=== PATIENT | female | born 1955 | race American Indian/Alaskan Native ===

== ENCOUNTER 2023-11-20 07:12 | Inpatient (IN) | payer OTHER ==
[~2023-11-20] VITALS: Ht 157.5 cm; Wt 51.0 kg
[~2023-11-20 07:12] MED LIST: CIPR500 PO; HYDR1TAB94 PO; METOPROLOL TART25 MG PO; Norco 5-325 Ta1 EACH PO; PRED20 PO; TRELEGY ELLIPT1 EACH INH
[2023-11-20] MEDS ORDERED: DILT60 PO (07:21)
[2023-11-20] MEDS ORDERED: ALBUTEROL2.5 MG/0.5 INH (07:21)
[2023-11-20] MEDS ORDERED: Ipratropium/Albuterol SulF 2.5-0.5MG/3 ML Amp INH ONE (08:00)
[2023-11-20] MEDS ORDERED: Albuterol 2.5 MG/3 ML VIAL INH SCH ×2 (08:00→10:00)
[2023-11-20] MEDS ORDERED: dilTIAZem HCL 30 MG TAB PO ONE (08:05)
[2023-11-20 08:18] LABS: BASOPHILS ABSOLUTE AUTO 0.04 K/mm3 (0.00-0.23); BASOPHILS PERCENT AUTO 1 % (0-2); EOSINOPHILS ABSOLUTE AUTO 0.26 K/mm3 (0.00-0.68); EOSINOPHILS PERCENT AUTO 4 % (0-6); Hematocrit 45.6 % (33.0-51.0); Hemoglobin 15.3 g/dL (11.5-16.0); IMMATURE GRAN ABSOLUTE AUTO 0.04 K/mm3 (0.00-0.10); IMMATURE GRAN PERCENT AUTO 1 % (0-1); LYMPHOCYTES ABSOLUTE AUTO 1.15 K/mm3 (0.84-5.20); LYMPHOCYTES PERCENT AUTO 16 % (21-46); MONOCYTES ABSOLUTE AUTO 0.31 K/mm3 (0.16-1.47); MONOCYTES PERCENT AUTO 4 % (4-13); Mean Corpuscular HGB 30.8 pg (26.0-34.0); Mean Corpuscular HGB Conc 33.6 g/dL (31.5-36.5); Mean Corpuscular Volume 92 fL (80-100); Mean Platelet Volume 10.5 fL (9.1-12.4); NEUTROPHILS ABSOLUTE AUTO 5.42 K/mm3 (1.96-9.15); NEUTROPHILS PERCENT AUTO 75 % (41-73); Platelet Count 285 K/mm3 (150-400); RDW Coefficient Variation 13.2 % (11.7-14.2); RDW Standard Deviation 44.1 fL (35.1-46.3); Red Blood Cell Count 4.97 M/mm3 (3.80-5.20); White Blood Cell Count 7.22 K/mm3 (4.00-11.30)
[2023-11-20] MEDS ORDERED: Midazolam HCl 1MG / ML 2ML Vial IV ONE ×2 (08:20→09:00)
[2023-11-20 08:46] LABS: Albumin, Blood 3.9 g/dL (3.4-5.0); Bilirubin, Total 0.6 mg/dL (0.1-1.0); Bun/Creatinine Ratio 19.5 (12.0-20.0); Calcium, Blood 9.5 mg/dL (8.5-10.1); Creatinine, Blood 0.57 mg/dL (0.40-1.00); Globulin, Blood 3.8 g/dL (2.2-4.0); Potassium, Blood 4.2 mmol/L (3.5-5.5); Total Protein, Blood 7.7 g/dL (6.4-8.2)
[2023-11-20] MEDS ORDERED: Azithromycin 250 MG Tab PO ONE (10:10)
[2023-11-20] MEDS ORDERED: Acetaminophen 325 MG TABLET PO PRN (10:20)
[2023-11-20] MEDS ORDERED: Ipratropium/Albuterol SulF 2.5-0.5MG/3 ML Amp INH SCH (10:20)
[2023-11-20] MEDS ORDERED: CefTRIAXone Sodium 1,000 MG in NS 100 ML IV SCH (11:00)
[2023-11-20 11:34] LABS: Influenza A, PCR NEGATIVE (NEGATIVE); Influenza B, PCR NEGATIVE (NEGATIVE); Resp Syncytial Virus, PCR NEGATIVE (NEGATIVE); SARS-Cov-2 (COVID-19) PCR, MMC NEGATIVE (NEGATIVE)
[2023-11-20] MEDS ORDERED: MethylPREDNISolone Sod Succ 125 MG Vial IV SCH (12:00)
[2023-11-20] MEDS ORDERED: ALBU90OI INH (12:42)
[2023-11-20] MEDS ORDERED: ASCO500 PO (12:43)
[2023-11-20] MEDS ORDERED: ASPI81CH PO (12:43)
[2023-11-20] MEDS ORDERED: Vitamin B Comple1 EA PO (12:44)
[2023-11-20] MEDS ORDERED: THERA-D2000 UNIT PO (12:44)
[2023-11-20] MEDS ORDERED: Albuterol 2.5 MG/3 ML VIAL INH PRN (15:15)
[2023-11-20 15:42] VITALS: BP 113/65
[2023-11-20] MEDS ORDERED: FORMOTEROL INH SCH (15:55)
[2023-11-20] MEDS ORDERED: BUDESONIDE 0.5 MG INH SCH (15:55)
[2023-11-20] MEDS ORDERED: GLYCOPYRROLATE INH SCH (15:55)
--- NOTE | 2023-11-20 18:25 | NUR ---
SHIFT SUMMARY; ASSUMED CARE FROM ED FOR ADMIT. MOVES SELF FROM GURNEY TO BED. EXTREMLY SOB AND RAPID BREATHING WITH THE EXERTION. 4L 02 VIA NC, SATS 92%. PT STATES NORMAL SATS ARE 88-89%. GRADUALLY SLOWS BREATHING DOWN AND LOOKS LESS DISTRESSED. APPEARS ANXIOUS, PROVIDER DISCUSSED ATIVAN AND WILL ORDER. DAUGHTER AT BEDSIDE, A/A/OX4, WILL CONTINUE TO TREAT AND MONITOR UNTIL CHANGE OF SHIFT.
[2023-11-20 19:28] VITALS: BP 117/72
--- NOTE | 2023-11-20 20:14 | NUR ---
ASSUMPTION OF CARE AFTER RECEIVING REPORT FROM CARLOS RN, THIS RN ASSUMED CARE AT APPROX 1915. PATIENT ALERT AND ORIENTED X4. RECEPTIVE TO EDUCATION. PERRLA. MOVES ALL EXTREMITIES EQUALLY. TELEMETRY SHOWING SINUS TACH 110s-120s. REPORTS HX OF SINUS TACH IN WHICH SHE TAKES PO DILTIAZEM. EVENING DOSE ADMINISTERED PER EMAR. BP STABLE. CURRENTLY ON 3-4L VIA NC, SATs >90%. MILD EXPIRATORY WHEEZE NOTED - RT AT BEDSIDE TO ADMINISTER SCHEDULED BREATHING TREATMENT. RECEIVED IN REPORT THAT PATIENT DOES EXPERIENCE ANXIETY WITH BIPAP USE - MD CONTACTED, RECEIVED ORDER FOR PRN IV ATIVAN 0.25MG TID IF BIPAP NEEDED. RT SUGGESTING INCENTIVE SPIROMETER AT BEDSIDE FOR USE - RECEIVED ORDER FROM MD. PATIENT IS A SBA TO BSC DUE TO SHORTNESS OF BREATH. REPOSITIONS HERSELF INDEPENDENTLY IN BED. CALL LIGHT IN REACH.
[2023-11-20] MEDS ORDERED: LORazepam 2 MG/ML 1ML Injection IV PRN (20:15)
[2023-11-20] MEDS ORDERED: dilTIAZem HCL 60 MG TAB PO SCH (21:00)
[2023-11-20] MEDS ORDERED: Ascorbic Acid 500 MG Tab PO SCH (21:00)
[2023-11-20 23:23] VITALS: BP 94/65
[2023-11-21 03:40] VITALS: BP 115/65
[2023-11-21 04:18] LABS: BASOPHILS PERCENT AUTO 0 % (0-2); EOSINOPHILS PERCENT AUTO 0 % (0-6); Hematocrit 43.2 % (33.0-51.0); Hemoglobin 14.4 g/dL (11.5-16.0); IMMATURE GRAN ABSOLUTE AUTO 0.03 K/mm3 (0.00-0.10); IMMATURE GRAN PERCENT AUTO 0 % (0-1); LYMPHOCYTES ABSOLUTE AUTO 0.62 K/mm3 (0.84-5.20); LYMPHOCYTES PERCENT AUTO 8 % (21-46); MONOCYTES ABSOLUTE AUTO 0.07 K/mm3 (0.16-1.47); MONOCYTES PERCENT AUTO 1 % (4-13); Mean Corpuscular HGB 30.6 pg (26.0-34.0); Mean Corpuscular HGB Conc 33.3 g/dL (31.5-36.5); Mean Corpuscular Volume 92 fL (80-100); Mean Platelet Volume 10.9 fL (9.1-12.4); NEUTROPHILS PERCENT AUTO 91 % (41-73); Platelet Count 290 K/mm3 (150-400); RDW Coefficient Variation 13.1 % (11.7-14.2); RDW Standard Deviation 43.8 fL (35.1-46.3); Red Blood Cell Count 4.71 M/mm3 (3.80-5.20); White Blood Cell Count 7.82 K/mm3 (4.00-11.30)
[2023-11-21 05:04] LABS: Albumin, Blood 3.7 g/dL (3.4-5.0); Albumin/Globulin Ratio 1.1 (0.8-1.8); Bilirubin, Total 0.3 mg/dL (0.1-1.0); Bun/Creatinine Ratio 27.6 (12.0-20.0); Creatinine, Blood 0.44 mg/dL (0.40-1.00); Globulin, Blood 3.4 g/dL (2.2-4.0); Potassium, Blood 3.9 mmol/L (3.5-5.5); Total Protein, Blood 7.1 g/dL (6.4-8.2)
--- NOTE | 2023-11-21 05:34 | NUR ---
SHIFT SUMMARY NO ACUTE EVENTS OVERNIGHT. PATIENT SLEPT OR RESTED QUIETLY T/O NIGHT, EASILY AROUSABLE WITH VERBAL STIMULI. REMAINS ALERT AND ORIENTED X4. COMMUNICATING NEEDS EFFECTIVELY. TELEMETRY SHOWING SINUS TACH 120s. BP SOFT AT TIMES, SBP 90s-100s. MAP >65. ON 3L VIA NC, SATs 88-92%. EXPIRATORY WHEEZE IMPROVING. DID NOT REQUIRE USE OF BIPAP T/O NIGHT. REPOSITIONING HERSELF INDEPENDENTLY. CALL LIGHT IN REACH. WILL CONTINUE TO MONITOR AND REPORT TO ONCOMING RN.
[2023-11-21 07:35] VITALS: BP 115/62
[2023-11-21] MEDS ORDERED: Cholecalciferol 1000 Unit Tablet (=25MCG) PO SCH (09:00)
[2023-11-21] MEDS ORDERED: Lactobacil 2-S.Thermo-Bifido 1 1 Cap PO SCH (09:00)
[2023-11-21] MEDS ORDERED: Vitamin B Complex 1 EA Softgel PO SCH (09:00)
[2023-11-21] MEDS ORDERED: Enoxaparin 40 MG/0.4 ML SYR SC SCH (09:00)
[2023-11-21] MEDS ORDERED: Azithromycin 250 MG Tab PO SCH (09:00)
[2023-11-21] MEDS ORDERED: Aspirin 81 MG Chew PO SCH ×2 (09:00→21:00)
[2023-11-21 11:38] LABS: Free Thyroxine 1.2 ng/dL (0.70-1.60); Thyroid Stimulating Hormone 0.223 uIU/mL (0.360-4.800)
[2023-11-21 12:03] VITALS: BP 105/70
[2023-11-21] MEDS ORDERED: GuaiFENesin 600 MG TabCR PO SCH (16:00)
[2023-11-21 16:06] VITALS: BP 120/64
--- NOTE | 2023-11-21 18:11 | NUR ---
PT SUMMARY; NO ACUTE CHANGE FOR THE SHIFT. PT REMAINS ON 4L OF O2 VIA NASAL CANNULA UP TO 6L WHEN AMBULATING TO THE BATHROOM, PT DESATS TO 85-88% WITH EXERTION PT WITH NOTICEABLE SOB AND WHEEZING. HRR HAS BEEN ST 100-120'S, SBP 100-120'S, AFEBRILE. PT C/O NONPRODUCTIVE COUGH, MUCINEX ORDERED BID. PT TOLERATING PO AND FLUID INTAKE. DENIES CHEST PAIN/PRESSURE, NO NVD/DIZZINESS FOR THE SHIFT. PT CONTINUES ON IV ABO, STEROIDS AND BREATHING TX PER RT. NO OTHER ISSUES REPORTED. PT HAS BEEN CALLING APPROPRIATELY. ABLE TO MAKE NEEDS KNOWN WILL REPORT TO ONCOMING SHIFT
[2023-11-21 20:12] VITALS: BP 106/65
[2023-11-21] MEDS ORDERED: Benzonatate 100 MG Cap PO PRN (20:25)
--- NOTE | 2023-11-21 21:11 | NUR ---
ASSUMPTION OF CARE Pt sitting up in bed, oriented x4, RT at bedside for breathing tx. Pt reporting cough not getting better and requests additional medications, discussed with Dr Alicia, bobbi salomon ordered and administered. Pt on 5L oxygen per nasal canula, increased needs with activity. Monitor shows sinus tachycardia, rate 120's-130's, baseline for patient. Blood pressure stable. Pt denies GI/ issues.
[2023-11-21 23:23] VITALS: BP 130/64
[2023-11-22] VITALS (7 sets, daily range): BP systolic 109–143; BP diastolic 59–90
[2023-11-22 04:28] LABS: BASOPHILS ABSOLUTE AUTO 0.02 K/mm3 (0.00-0.23); BASOPHILS PERCENT AUTO 0 % (0-2); EOSINOPHILS PERCENT AUTO 0 % (0-6); Hematocrit 41.6 % (33.0-51.0); IMMATURE GRAN ABSOLUTE AUTO 0.09 K/mm3 (0.00-0.10); IMMATURE GRAN PERCENT AUTO 1 % (0-1); LYMPHOCYTES ABSOLUTE AUTO 0.58 K/mm3 (0.84-5.20); LYMPHOCYTES PERCENT AUTO 4 % (21-46); MONOCYTES ABSOLUTE AUTO 0.29 K/mm3 (0.16-1.47); MONOCYTES PERCENT AUTO 2 % (4-13); Mean Corpuscular HGB 31.3 pg (26.0-34.0); Mean Corpuscular HGB Conc 33.7 g/dL (31.5-36.5); Mean Corpuscular Volume 93 fL (80-100); Mean Platelet Volume 10.8 fL (9.1-12.4); NEUTROPHILS ABSOLUTE AUTO 15.82 K/mm3 (1.96-9.15); NEUTROPHILS PERCENT AUTO 94 % (41-73); Platelet Count 293 K/mm3 (150-400); RDW Coefficient Variation 13.3 % (11.7-14.2); RDW Standard Deviation 45.3 fL (35.1-46.3); Red Blood Cell Count 4.48 M/mm3 (3.80-5.20)
[2023-11-22 05:00] LABS: Bun/Creatinine Ratio 36.5 (12.0-20.0); Calcium, Blood 8.9 mg/dL (8.5-10.1); Creatinine, Blood 0.52 mg/dL (0.40-1.00); Potassium, Blood 4.2 mmol/L (3.5-5.5)
--- NOTE | 2023-11-22 05:37 | NUR ---
SHIFT SUMMARY NO ACUTE EVENTS THIS SHIFT, PT REMAINS ORIENTED, OXYGEN REQUIREMENTS DECREASED OVERNIGHT TO 3L WITH INCREASES TO 5L WITH ACTIVITY. MONITOR SHOWS SINUS TACH WITH RATES 110-120'S, BP STABLE. NO GI/ ISSUES.
[2023-11-22] MEDS ORDERED: MethylPREDNISolone Sod Succ 125 MG Vial IV ONE (12:15)
--- NOTE | 2023-11-22 12:19 | NUR ---
SOLU-MEDROL: THE PATIENT'S DOSING OF THE SOLU-MEDROL HAS BEEN CHANGED TO Q12. SPOKE WITH DR. HERNANDES TO DETERMINE IF PATIENT SHOULD RECEIVE THE 12:00 DOSE (ORDERED DC'D AT 1200). PER DR. HERNANDES, PATIENT SHOULD RECEIVE THIS DOSE. ONE TIME ORDER ENTERED.
[2023-11-22] MEDS ORDERED: Nystatin 100,000 Unit/ML Susp 5 ML UDC MT SCH (13:00)
--- NOTE | 2023-11-22 18:49 | NUR ---
SHIFT SUMMARY: NEURO: PATIENT ALERT AND ORIENTED X4. PATIENT REQUIRES A STANDBY ASSIST WITH OUT OF BED ACTIVITY SHE IS SOMETIMES MILDLY UNSTEADY. PATIENT CALLS APPROPRIATELY. PATIENT DENIES NUMBNESS/TINGLING THROUGHOUT. RESPIRATORY: PATIENT STABLE ON 2-3L VIA NC WITH REST, SPO2 >90%. WITH ACTIVITY, PATIENT DESATURATED TO 85% WITHOUT AN INCREASE IN O2. INCREASED O2 TO 5L FOR OUT OF BED ACTIVITY. PATIENT BECOMES SHORT OF BREATH AND TACHYPNEIC. PATIENT RECOVERS WITHIN A COUPLE OF MINUTES AT REST. PATIENT BECOMES SHORT OF BREATH AND TACHYPNEIC POST BREATHING TREATMENT. SHE REPORTS THEY ARE VERY UNCOMFORTABLE, BUT SHE WANTS TO BE COMPLIANT WITH CARE. PATIENT USING FLUTTER VALVE INDEPENDENTLY DURING THE DAY. PATIENT REPORTS THAT HER COUGH FEELS MORE PRODUCTIVE TODAY. PATIENT DENIED NEEDING PRN COUGH MEDICINE TODAY. CARDIAC: PATIENT'S BLOOD PRESSURES STABLE WITH MAPS >65. PATIENT'S HR IN THE 110S-120S THROUGHOUT THE SHIFT. PATIENT'S HR INCREASES WITH RESPIRATORY TREATMENTS AND COUGHING INTO THE 130S. GI/: PATIENT TOLERATING ENSURES AND SMALL AMOUNTS OF HER MEALS. PATIENT DENIES NAUSEA. NOTED WHITE SPLOTCHES IN HER MOUTH AND PATIENT REPORTED A SORE THROAT. THRUSH MEDICATION STARTED TODAY. PATIENT VOIDING WITHOUT DIFFICULTY. PSYCHSOCIAL: PATIENT CALM AND COOPERATIVE WITH CARE. PATIENT UNDERSTANDS THAT A LONGER HOSPITAL STAY WILL BE BENEFICIAL TO HER. PATIENT ABLE TO GET SOME REST THIS AFTERNOON.
[2023-11-22] MEDS ORDERED: MethylPREDNISolone Sod Succ 125 MG Vial IV SCH (21:00)
[2023-11-23 04:23] VITALS: BP 118/65
--- NOTE | 2023-11-23 04:28 | NUR ---
SHIFT SUMMARY THIS RN ASSUMED CARE OF PATIENT AT 1900. NO ACUTE CHANGES OVERNIGHT. SR/ST ON MONITOR WITH HR 90-110'S. ON 3L VIA NC WITH REST, NEEDING 5L VIA NC WITH AMBULATION TO BATHROOM. BP STABLE. AFEBRILE. PT CALLING APPROPRIATELY. ABLE TO MAKE NEEDS KNOWN. SBA TO BATHROOM. BED IN LOWEST POSITION AND CALL LIGHT WITHIN REACH. THIS RN WILL REPORT TO ONCOMING DAYSHIFT RN.
[2023-11-23 09:50] VITALS: BP 107/73
[2023-11-23 12:17] VITALS: BP 142/71
[2023-11-23 15:13] VITALS: BP 127/77
[2023-11-23] MEDS ORDERED: Loperamide HCl 2 MG Cap PO PRN (18:20)
[2023-11-23] MEDS ORDERED: Banana Flakes/Tos 1 EA Powder Pack PO SCH (19:00)
--- NOTE | 2023-11-23 19:11 | NUR ---
SHIFT SUMMARY PT A&Ox4, CALLS AND COMMUNICATES NEEDS APPROPRIATELY. BP STABLE, SINUS TACH 100-120's, DENIES CP/PRESSURE. SpO2> 92% 3L VIA NC WHILE AT REST. PT DESATURATES WITH ACTIVITY, 5L VIA NC HELPS PT RECOVER FASTER. PT WITH HACKING COUGH, MEDICATED PER EMAR. SBA TO BATHROOM, CONTINENT OF URINE AND BOWEL. PT WITH LOOSE STOOL, NOTIFIED, ORDERS PLACED. NO C/O PAIN. NO OTHER EVENTS, REPORT GIVEN TO ONCOMING RN.
[2023-11-23 20:04] VITALS: BP 133/90
[2023-11-24 00:15] VITALS: BP 148/79
--- NOTE | 2023-11-24 00:16 | NUR ---
PT HERE VIA PCU BED - SWAPPED BEDS OUT. PT IS ALERT AND ORIENTED X3. PT ON 3L O2 - CALLED RT FOR CONTINUOUS BIOX - SAT MONITOR ON . SATS 90% ON 3L. FLUIDS/FOOD AT BEDSIDE. CALL LIGHT WITHIN REACH. BED IN LOW POSITION. BED ALARM ON FOR SAFETY. TELE IN PLACE - HR 110'S. PT DENIES ANY PAIN.
--- NOTE | 2023-11-24 00:33 | NUR ---
TRANSFER PATIENT TRANSFERRED FROM PCU 04 TO MEDICAL FLOOR ROOM 356. PATIENT ALERT AND ORIENTED X4, STAND BY ASSIST TO THE RESTROOM. HAD DENIED HAVING ANY PAIN. BECOMES SHORT OF BREATH AND TACHYPNIC WITH MINIMAL EXERTION. ON 3 LITERS O2 VIA NC AT REST AND 5 LITERS WITH ACTIVITY. VITAL SIGNS STABLE, TACHYCARDIC WITH SOB AND ACTIVITY. REPORT GIVEN TO GEM Neumann RN.
[2023-11-24 03:15] VITALS: BP 134/78
--- NOTE | 2023-11-24 05:05 | NUR ---
SHIFT SUMMARY - NO ACUTE CHANGES SINCE TRANSFERRED TO MEDICAL FLOOR FROM PCU. PT HAS A CONTINUOUS BIOX ON - SATS WNL ON 3L O2, ABOVE 90%. PT DOES HAVE EXP WHEEZES THROUGHOUT. TELE IN PLACE - SINUS TACH - LOW 100/110'S. PT WEARS 2L O2 AT BASELINE. PT DENIED ANY PAIN. CALL LIGHT WITHIN REACH. BED IN LOW POSITION. FLUIDS AT BEDSIDE. BED ALARM ON FOR PT SAFETLY. WILL CONTINUE TO MONITOR UNTIL AM SHIFT CHANGE.
[2023-11-24 05:43] LABS: Albumin, Blood 3.2 g/dL (3.4-5.0); Albumin/Globulin Ratio 1.1 (0.8-1.8); Bilirubin, Total 0.2 mg/dL (0.1-1.0); Bun/Creatinine Ratio 43.9 (12.0-20.0); Calcium, Blood 8.4 mg/dL (8.5-10.1); Creatinine, Blood 0.46 mg/dL (0.40-1.00); Globulin, Blood 2.9 g/dL (2.2-4.0); Potassium, Blood 4.6 mmol/L (3.5-5.5); Total Protein, Blood 6.1 g/dL (6.4-8.2)
[2023-11-24 06:20] LABS: BASOPHILS ABSOLUTE AUTO 0.04 K/mm3 (0.00-0.23); BASOPHILS PERCENT AUTO 0 % (0-2); EOSINOPHILS ABSOLUTE AUTO 0.01 K/mm3 (0.00-0.68); EOSINOPHILS PERCENT AUTO 0 % (0-6); Hemoglobin 14.7 g/dL (11.5-16.0); IMMATURE GRAN ABSOLUTE AUTO 0.23 K/mm3 (0.00-0.10); IMMATURE GRAN PERCENT AUTO 2 % (0-1); LYMPHOCYTES ABSOLUTE AUTO 0.55 K/mm3 (0.84-5.20); LYMPHOCYTES PERCENT AUTO 5 % (21-46); MONOCYTES ABSOLUTE AUTO 0.42 K/mm3 (0.16-1.47); MONOCYTES PERCENT AUTO 3 % (4-13); Mean Corpuscular HGB 31.5 pg (26.0-34.0); Mean Corpuscular HGB Conc 34.2 g/dL (31.5-36.5); Mean Corpuscular Volume 92 fL (80-100); Mean Platelet Volume 10.7 fL (9.1-12.4); NEUTROPHILS PERCENT AUTO 90 % (41-73); Platelet Count 324 K/mm3 (150-400); RDW Coefficient Variation 13.2 % (11.7-14.2); RDW Standard Deviation 44.8 fL (35.1-46.3); Red Blood Cell Count 4.66 M/mm3 (3.80-5.20); White Blood Cell Count 12.25 K/mm3 (4.00-11.30)
[2023-11-24 08:02] VITALS: BP 155/101
[2023-11-24 15:39] VITALS: BP 153/83
[2023-11-24] MEDS ORDERED: Morphine Sulfate 20 MG/1ML 1 ML Oral Syringe PO ONE (17:00)
[2023-11-24] MEDS ORDERED: MethylPREDNISolone Sod Succ 125 MG Vial IV ONE (18:00)
[2023-11-24 18:22] LABS: Base Excess Venous 7.4 mmol/L; Bicarbonate Venous 31.1 mmol/L (24.0-30.0); PCO2 Venous 34.6 mmHg (38-42); pH Blood Venous 7.54 (7.34-7.37)
--- NOTE | 2023-11-24 18:40 | NUR ---
SUMMARY PT IS DROWSY, SHE REPORTS BEING VERY TIRED AT THIS TIME. PT HAS HAD HARSH NON PRODUCTIVE COUGH THAT HAS WORSENED THROUGHOUT THE SHIFT. DR. KIRKLAND AND DR. DOUGHERTY NOTIFIED. PLEASE SEE ORDERS. PT HAD CRITICAL PH. CT PE STUDY ORDERED. PT DESAT TO MID 80S WITH COUGH, 7L NC, SEVERAL MINUTES TO RECOVER. PT ALSO SINUS TACH 120-130 THIS SHIFT. AWARE. RT CURRENTLY AT BEDSIDE FOR SCHEDULED TREATMENT. PT UNABLE TO EAT DUE TO SOB.
[2023-11-24 19:40] VITALS: BP 145/84
[2023-11-24] MEDS ORDERED: Ondansetron HCl 2 MG / ML 2ML Vial IV PRN (20:30)
[2023-11-25 02:02] VITALS: BP 157/79
[2023-11-25 05:16] LABS: BASOPHILS ABSOLUTE AUTO 0.04 K/mm3 (0.00-0.23); BASOPHILS PERCENT AUTO 0 % (0-2); EOSINOPHILS PERCENT AUTO 0 % (0-6); Hematocrit 42.6 % (33.0-51.0); Hemoglobin 14.5 g/dL (11.5-16.0); IMMATURE GRAN ABSOLUTE AUTO 0.24 K/mm3 (0.00-0.10); IMMATURE GRAN PERCENT AUTO 3 % (0-1); LYMPHOCYTES ABSOLUTE AUTO 0.48 K/mm3 (0.84-5.20); LYMPHOCYTES PERCENT AUTO 5 % (21-46); MONOCYTES PERCENT AUTO 3 % (4-13); Mean Corpuscular HGB 31.5 pg (26.0-34.0); Mean Corpuscular Volume 92 fL (80-100); NEUTROPHILS PERCENT AUTO 88 % (41-73); Platelet Count 292 K/mm3 (150-400); RDW Standard Deviation 44.2 fL (35.1-46.3); Red Blood Cell Count 4.61 M/mm3 (3.80-5.20); White Blood Cell Count 9.06 K/mm3 (4.00-11.30)
--- NOTE | 2023-11-25 05:24 | NUR ---
SHIFT SUMMARY PT A&OX4. AT START OF SHIFT PT STATED JUST GENERALLY NOT FEELING WELL. RT AT BEDSIDE TO GIVE BREATHING TX. PT DESATS TO THE 80'S AND HR JUMPS TO 130'S WITH ACTIVITY. HOWEVER, PT ABLE TO SLEEP MOST OF THE NIGHT AND O2 WAS AT 98% ON 4L OF OXYGEN AND HR REMAINED IN THE 90'S DURING SLEEP. NO C/O PAIN. BED ALARM ON. BED IN LOWEST POSITION AND CALL LIGHT IN REACH.
[2023-11-25 05:49] LABS: Albumin, Blood 3.1 g/dL (3.4-5.0); Bilirubin, Total 0.3 mg/dL (0.1-1.0); Bun/Creatinine Ratio 37.5 (12.0-20.0); Calcium, Blood 8.3 mg/dL (8.5-10.1); Creatinine, Blood 0.43 mg/dL (0.40-1.00); Potassium, Blood 4.5 mmol/L (3.5-5.5); Total Protein, Blood 6.1 g/dL (6.4-8.2)
[2023-11-25 08:23] VITALS: BP 152/88
[2023-11-25] MEDS ORDERED: BusPIRone HCl 5 MG Tab PO SCH (12:00)
[2023-11-25 15:17] VITALS: BP 153/73
--- NOTE | 2023-11-25 19:33 | NUR ---
SUMMARY PT REPORTS FEELING MUCH BETTER TODAY THAN YESTERDAY. NO ACUTE CHANGES. DESAT WITH STAND PIVOT. 4L NC. BUSPAR STARTED TODAY. PT REPORTS FEELING LESS ANXIOUS. ABLE TO MAKE NEEDS KNONW
[2023-11-25 19:53] VITALS: BP 152/74
--- NOTE | 2023-11-25 21:06 | NUR ---
PATIENT REPORTS THAT THE ALBUTEROL INHALER MAKES HER CHEST FEEL TIGHT AND IT HARDER TO BREATHE. PATIENT REPORTS THAT HER SPO2 GOES DOWN INTO THE HIGH 80'S FOLLOWING ALBUTEROL TREATMENT. PATIENT REPORTS SHE GETS HOT FLASHES AND FEELS WORSE FOLLOWING TREATMENT. PATIENT STATES THAT SHE HAS REPORTED THIS TO RESPIRATORY THERAPY AND CONTINUES TO GET THE TREATMENTS. PATIENT TOLD THIS RN THAT SHE IS GOING TO REFUSES THE TREATMENT FOR THIS REASON.
[2023-11-26 03:04] VITALS: BP 142/86
--- NOTE | 2023-11-26 04:32 | NUR ---
SHIFT SUMMARY. PATIENT IS A&OX4. PATIENT REPORTS THAT SHE HAS FELT BETTER TODAY THAN SHE HAD THE DAY BEFORE. PATIENT DESATTING WITH EXERTION. PATIENT IS ON 4L'S O2 VIA NASAL CANNULA. PATIENT REPORTS ISSUE WITH ALBUTEROL TREATMENTS-SEE PREVIOUS NOTE-NO FUTHER ISSUES OR CHANGES NOTED. BED IS LOCKED IN THE LOWEST POSITION WITH CALL LIGHT IN REACH. PATIENT IS ABLE TO MAKE HER NEEDS KNOWN. CARE IS ONGOING.
[2023-11-26 07:51] VITALS: BP 140/81
[2023-11-26] MEDS ORDERED: Ipratropium Bromide INH 0.02% 0.5 mg/2.5ML Vial INH SCH (08:45)
[2023-11-26] MEDS ORDERED: NS 250 ML IV PRN (09:05)
[2023-11-26 14:44] VITALS: BP 126/80
[2023-11-26 19:35] VITALS: BP 150/80
[2023-11-27 04:50] VITALS: BP 149/78
[2023-11-27] MEDS ORDERED: Albuterol 2.5 MG/3 ML VIAL INH PRN (04:55)
[2023-11-27] MEDS ORDERED: LORazepam 2 MG/ML 1ML Injection IV PRN (05:40)
[2023-11-27 07:10] VITALS: BP 136/93
[2023-11-27 07:30] LABS: BASOPHILS PERCENT AUTO 1 % (0-2); EOSINOPHILS ABSOLUTE AUTO 0.01 K/mm3 (0.00-0.68); EOSINOPHILS PERCENT AUTO 0 % (0-6); Hematocrit 40.9 % (33.0-51.0); IMMATURE GRAN ABSOLUTE AUTO 0.67 K/mm3 (0.00-0.10); IMMATURE GRAN PERCENT AUTO 4 % (0-1); LYMPHOCYTES ABSOLUTE AUTO 0.38 K/mm3 (0.84-5.20); LYMPHOCYTES PERCENT AUTO 2 % (21-46); MONOCYTES ABSOLUTE AUTO 0.89 K/mm3 (0.16-1.47); MONOCYTES PERCENT AUTO 6 % (4-13); Mean Corpuscular HGB 31.3 pg (26.0-34.0); Mean Corpuscular HGB Conc 34.2 g/dL (31.5-36.5); Mean Corpuscular Volume 91 fL (80-100); Mean Platelet Volume 10.5 fL (9.1-12.4); NEUTROPHILS ABSOLUTE AUTO 13.96 K/mm3 (1.96-9.15); NEUTROPHILS PERCENT AUTO 87 % (41-73); Platelet Count 314 K/mm3 (150-400); RDW Coefficient Variation 12.9 % (11.7-14.2); RDW Standard Deviation 43.4 fL (35.1-46.3); Red Blood Cell Count 4.48 M/mm3 (3.80-5.20); White Blood Cell Count 16.01 K/mm3 (4.00-11.30)
--- NOTE | 2023-11-27 07:43 | NUR ---
SHIFT SUMMARY PT IS A&OX4, ANXIOUS BUT POLITE AND APPRECIATIVE OF CARES. VSS ON 4L NC. PER TELEMETRY HR IS ST @ 108-115. DYSPNEA WITH EXURTION. DENIES PAIN. TOLERATING A REG DIET, DECREASED APPETITITE D/T ILL FEELING. UP AD NOEMY INDEPENDENTLY TO BR/OR BSC. LIQUID BM X2 THIS SHIFT. MAKES NEEDS KNOWN. BED IN LOWEST POSITION, CALL LIGHT WITHIN REACH.
[2023-11-27 08:06] LABS: Bun/Creatinine Ratio 55.2 (12.0-20.0); Calcium, Blood 8.5 mg/dL (8.5-10.1); Creatinine, Blood 0.42 mg/dL (0.40-1.00); Potassium, Blood 4.2 mmol/L (3.5-5.5)
[2023-11-27 08:08] LABS: BAND PERCENT MAN 2 % (0-8); BASOPHILS PERCENT MAN 0 % (0-2); EOSINOPHILS PERCENT MAN 0 % (0-6); LYMPHOCYTES PERCENT MAN 5 % (21-46); METAMYELOCYTE ABSOLUTE MAN 0.16 K/mm3 (0.00-0.00); METAMYELOCYTE PERCENT MAN 1 % (0-0); MONOCYTES ABSOLUTE MAN 0.64 K/mm3 (0.16-1.47); MONOCYTES PERCENT MAN 4 % (4-13); MYELOCYTE ABSOLUTE MAN 0.32 K/mm3 (0.00-0.00); MYELOCYTE PERCENT MAN 2 % (0-0); NEUTROPHILS ABSOLUTE MAN 14.08 K/mm3 (1.96-9.15); SEG NEUTROPHILS PERCENT MAN 86 % (41-73); TOTAL CELLS COUNTED 100
[2023-11-27] MEDS ORDERED: HyDROXyzine HCl 25 MG Tab PO PRN (11:05)
--- NOTE | 2023-11-27 16:41 | NUR ---
PT ALERT & ORIENTED TIMES FOUR. SHE HAS NOTABLE WHEEZES IN RIGHT MIDDLE LOBE AND UPPER AIRWAY. 02 SATS WERE 93 ON 4 LITERS OF O2. POSITIONAL DESATTING. AFTERNOON PATIENT WAS ANXIOUS WILL GIVE HER MEDICATION FOR TREATMENT.
--- NOTE | 2023-11-27 18:53 | NUR ---
PATIENT SYMPTOMS ARE IMPROVING. SHE HAS TACHYCARDIA IN LOW 100S. SHE DESAT WHEN MOVING TO COMMODE. WBC AND NEUTROPHILS ELEVATED INFORMED PHYSICIAN. CONTINUED TO MONITOR O2 SAT CONTINEOUS PULSE OX AND MONITOR HEART RATE AND RYTHMN TELEMETRY
--- NOTE | 2023-11-27 18:58 | NUR ---
SHIFT SUMMARY PATIENT HAS BEEN EXPERIENCING EXCABERATION OF COPD. PATIENT SYMPTOMS IMPROVED THROUGH OUT THE SHIFT. LOWER LOBES HAVE FINE CRACKLES AND UPPER LOBES AUDIABLE WHEEZING NOTED. BREATHING TREATMENT IS OPENING AIRWAY AND LOOSENING MUCUS.
--- NOTE | 2023-11-27 19:39 | NUR ---
PATIENT ABLE TO RECOVER FASTER WHEN DESATTING TO MID 80S SHE DESATTED TO 84 AND RECOVERED ONCE I EXPLAINED TO HER TO TAKE DEEP BREATHS. HER O2 SATS CAME UP TO 94 WITHIN SECONDS. SHE IS ON CONTINEOUS 02 MONITORING AND FREQUENT ROUNDING IS DONE ON PATIENT TO MONITOR PATIENT.
[2023-11-27 19:55] VITALS: BP 160/84
[2023-11-28 04:38] VITALS: BP 142/86
--- NOTE | 2023-11-28 06:00 | NUR ---
NOC SHIFT SUMMARY PT APPEARS TO HAVE HAD A GOOD SLEEP TONIGHT. SHE HAS MILD SOB WITH EXERTION AND COMPLAINS OF A DRY HACKING COUGH. THE COUGH MEDICATIONS SHE RECEIVED AT BEDTIME WERE VERY EFFECTIVE AND HER COUGH SUBSIDED FOR SEVERAL HOURS. SHE IS STILL USING 4L OF O2 INSTEAD OF HER USUAL HOME DOSE OF 2L. ANTICIPATING POSSIBLE DISCHARGE SOON. CALL LIGHT WITHIN REACH.
[2023-11-28 07:21] VITALS: BP 151/89
[2023-11-28] MEDS ORDERED: Tessalon200 MG PO (11:31)
[2023-11-28] MEDS ORDERED: BUSP5 PO (11:33)
[2023-11-28] MEDS ORDERED: HYDRA25 PO (11:34)
[2023-11-28] MEDS ORDERED: NYSTATIN100000 U13 MT (11:35)
[2023-11-28] MEDS ORDERED: ATROVENT HFA12.9 GM INH (11:37)
[2023-11-28 15:41] VITALS: BP 164/93
--- NOTE | 2023-11-28 18:04 | NUR ---
PT DISCHARGED AT 1753 WITH DAUGHTER TO TRANSPORT HOME. [facility] ARRANGED FOR [facility] TO DROP OFF PORTABLE TANK FOR PT TO GET HOME SAFELY. PT DOING WELL AND HAD PACKED UP ALL OF HER THINGS. PT WAS ESCORTED OUT VIA WHEELCHAIR BY AID FOR DAUGHTER TO TRANPORT HOME. ALL PERSONAL BELONGINGS WHERE WITH PT.
== END 2023-11-28 18:04 | disposition home or self-care (01) | DRG 189 ==
LOC: ER 07:12 → PCU 07:13 → MEDS 11-21 16:06 → PCU 11-21 16:06 → MEDS 11-24 00:13 → ENPENDDIS 11-28 11:01 → MEDS 11-28 18:04
PROVIDERS: Family Medicine; Student in an Organized Health Care Education/Training Program; ADMIT Hospitalist
DX: J96.01 Acute respiratory failure with hypoxia (principal); J44.1 Chronic obstructive pulmonary disease with (acute) exacerbation; I10 Essential (primary) hypertension; R00.0 Tachycardia, unspecified; J43.2 Centrilobular emphysema; R94.6 Abnormal results of thyroid function studies; F41.9 Anxiety disorder, unspecified; Z90.49 Acquired absence of other specified parts of digestive tract; Z87.891 Personal history of nicotine dependence; Z79.51 Long term (current) use of inhaled steroids; Z79.82 Long term (current) use of aspirin; Z79.899 Other long term (current) drug therapy
CPT/HCPCS: 0241U; 36415; 71045; 71260; 80048; 80053; 82803; 83880; 84145; 84439; 84443; 84481; 85025; 93005; 93010; 94640; 94644; 94645; 94660; 94664; 94761; 94762; 96365; 96372; 96375; 96376; 99285-25; A9270; G0378; J0696; J1650; J2060; J2250; J2405; J2919; Q9967